=== PATIENT | female | born 1980 | race African-American/Black ===

== ENCOUNTER 2017-08-15 23:40 | Observation (INO) | payer OTHER ==
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
[2017-08-16] MEDS ORDERED: SODIUM CHLORIDE 1,000 ML IV STA ×2 (00:14→00:42)
[2017-08-16] MEDS ORDERED: ONDANSETRON 4 MG/2 ML VIAL IVPUSH ONE (00:14)
[2017-08-16] MEDS ORDERED: FAMOTIDINE IV 20 MG/12 ML VIAL IVPUSH ONE (00:19)
[2017-08-16] MEDS ORDERED: FAMOTIDINE 20 MG/50 ML IVPB 20 MG/50 ML MG IVPB ONE (00:22)
[2017-08-16] MEDS ORDERED: DICYCLOMINE HCL 20 MG/2 ML AMPUL IM ONE (00:42)
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
[2017-08-16 00:55] LABS: BASO % 0.1 % (0-2.0); EOS % 0.1 % (0-4.5); HEMATOCRIT 40.8 % (32.4-45.2); HEMOGLOBIN 13.9 GM/dL (10.7-15.3); LYMPH % 3.7 % (8-40); MCH 29.4 pg (25.7-33.7); MEAN CELL VOLUME 86.5 fl (80-96); MEAN PLT VOLUME 8.5 fl (7.5-11.1); MONO % 4.3 % (3.8-10.2); NEUT % 91.8 % (42.8-82.8); PLATELET COUNT 234 K/MM3 (134-434); RBC 4.72 M/mm3 (3.60-5.2); RDW 13.3 % (11.6-15.6)
[2017-08-16 01:41] LABS: WHITE BLOOD COUNT 15.2 K/mm3 (4.0-10.0)
[2017-08-16 01:59] LABS: ALBUMIN 3.6 g/dl (3.4-5.0); ALK PHOS 52 U/L (45-117); ANION GAP 9 (8-16); BLOOD UREA NITROGEN 13 mg/dL (7-18); CALCIUM 8.2 mg/dL (8.5-10.1); CHLORIDE 113 mmol/L (98-107); CO2 21 mmol/L (21-32); CREATININE 0.6 mg/dL (0.55-1.02); GLUCOSE,RANDOM 107 mg/dL (74-106); LIPASE 40 U/L (73-393); POTASSIUM 3.9 mmol/L (3.5-5.1); SGOT/AST 17 U/L (15-37); SGPT/ALT 14 U/L (12-78); SODIUM 143 mmol/L (136-145); TOT PROT 6.4 g/dl (6.4-8.2)
[2017-08-16] MEDS ORDERED: SODIUM CHLORIDE 1,000 ML IV SCH (03:00)
[2017-08-16] MEDS ORDERED: METOCLOPRAMIDE HCL INJECTION 10 MG/2 ML VIAL IVPUSH ONE (04:06)
[2017-08-16] MEDS ORDERED: METOCLOPRAMIDE HCL INJECTION 10 MG/2 ML VIAL ONE (04:12)
[2017-08-16 04:33] LABS: URINE APPEARANCE SLCLOUDY; URINE BILIRUBIN NEGATIVE (<2.0 mg/dL); URINE BLOOD NEGATIVE (NEGATIVE); URINE COLOR YELLOW; URINE GLUCOSE (UA) NEGATIVE (NEGATIVE); URINE KETONE 2+ (NEGATIVE); URINE LEUK ESTERASE NEGATIVE (NEGATIVE); URINE NITRITE NEGATIVE (NEGATIVE); URINE UROBILINOGEN NEGATIVE mg/dL (0.2-1.0)
[2017-08-16 04:36] LABS: URINE PROTEIN 1+ (NEGATIVE)
[2017-08-16] MEDS ORDERED: MAG HYDROX/AL HYDROX/SIMETH 30 ML UNIT-DOSE CUP PO ONE (04:37)
[2017-08-16] MEDS ORDERED: MAG HYDROX/AL HYDROX/SIMETH 30 ML UNIT-DOSE CUP ONE (04:43)
[2017-08-16 04:44] LABS: EPI CELLS RARE /HPF (FEW); URINE HYALINE CAST 3 /lpf; URINE MUCUS MANY
[2017-08-16] MEDS ORDERED: morphine CARPU-JECT 4 MG/1 ML DISP.SYRIN IVPUSH ONE (05:23)
[2017-08-16] MEDS ORDERED: morphine SULFATE 4 MG/ML VIAL ONE (05:24)
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
[2017-08-16 10:51] VITALS: BMI 18.5
[2017-08-16] MEDS ORDERED: FLU VACCINE QUAD 60 MCG/0.5 ML (MDV 17-18) IM ONE (10:51)
[2017-08-16] MEDS: SODIUM CHLORIDE 1,000 ML IV SCH ×2 (11:22→17:27)
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
--- NOTE | 2017-08-16 16:14 | EKG ---
Test Reason : Blood Pressure : / mmHG Vent. Rate : 061 BPM Atrial Rate : 061 BPM P-R Int : 162 ms QRS Dur : 068 ms QT Int : 434 ms P-R-T Axes : 065 088 086 degrees QTc Int : 436 ms NORMAL SINUS RHYTHM ANTERIOR INFARCT , AGE UNDETERMINED T WAVE ABNORMALITY, CONSIDER LATERAL ISCHEMIA ABNORMAL ECG NO PREVIOUS ECGS AVAILABLE Confirmed by GUILHERME DAS MD ([id number]) on 08/16/2017 4:14:05 PM Referred By: Confirmed By:GUILHERME DAS MD
[2017-08-16] MEDS ORDERED: IBUPROFEN 400 MG TABLET (FP) PO PRN (17:08)
[2017-08-16] MEDS: IBUPROFEN 400 MG TABLET (FP) PO PRN (17:28)
[2017-08-16] MEDS ORDERED: WITCH HAZEL 50% (TUCKS) 40 PAD/JAR PAD TP PRN (18:37)
[2017-08-17] MEDS: SODIUM CHLORIDE 1,000 ML IV SCH ×2 (02:00→07:28)
[2017-08-17] MEDS: IBUPROFEN 400 MG TABLET (FP) PO PRN (05:48)
[2017-08-17 06:07] LABS: HEP.C VIRUS AB <0.1 s/co ratio (0.0-0.9)
[2017-08-17 07:31] LABS: HEMATOCRIT 28.5 % (32.4-45.2); HEMOGLOBIN 9.9 GM/dL (10.7-15.3); MCH 29.7 pg (25.7-33.7); MCHC 34.6 g/dl (32.0-36.0); MEAN CELL VOLUME 85.9 fl (80-96); MEAN PLT VOLUME 8.3 fl (7.5-11.1); PLATELET COUNT 177 K/MM3 (134-434); RBC 3.32 M/mm3 (3.60-5.2); RDW 13.4 % (11.6-15.6); WHITE BLOOD COUNT 5.8 K/mm3 (4.0-10.0)
[2017-08-17] MEDS ORDERED: oxyCODONE HCL 5 MG TABLET PO ONE (08:00)
[2017-08-17 08:08] LABS: ALBUMIN 2.9 g/dl (3.4-5.0); ANION GAP 7 (8-16); BLOOD UREA NITROGEN 6 mg/dL (7-18); CALCIUM 7.3 mg/dL (8.5-10.1); CHLORIDE 116 mmol/L (98-107); CO2 21 mmol/L (21-32); GLUCOSE,RANDOM 79 mg/dL (74-106); POTASSIUM 3.5 mmol/L (3.5-5.1); SODIUM 144 mmol/L (136-145)
[2017-08-17 08:12] LABS: ALK PHOS 43 U/L (45-117); BILIRUBIN,TOTAL 0.4 mg/dL (0.2-1.0); CREATININE 0.6 mg/dL (0.55-1.02); SGOT/AST 31 U/L (15-37); SGPT/ALT 21 U/L (12-78); TOT PROT 5.1 g/dl (6.4-8.2)
[2017-08-17 11:51] LABS: HEMATOCRIT 31.3 % (32.4-45.2); HEMOGLOBIN 10.6 GM/dL (10.7-15.3); MCH 29.3 pg (25.7-33.7); MCHC 33.9 g/dl (32.0-36.0); MEAN CELL VOLUME 86.4 fl (80-96); MEAN PLT VOLUME 7.8 fl (7.5-11.1); PLATELET COUNT 182 K/MM3 (134-434); RBC 3.63 M/mm3 (3.60-5.2); RDW 13.4 % (11.6-15.6); WHITE BLOOD COUNT 5.7 K/mm3 (4.0-10.0)
--- NOTE | 2017-08-17 12:11 | DS ---
Physical Examination Vital Signs: Vital Signs Temperature 98.5 F 08/17/17 10:00 Pulse Rate 60 08/17/17 10:00 Respiratory Rate 20 08/17/17 10:00 Blood Pressure 119/71 08/17/17 10:00 O2 Sat by Pulse Oximetry (%) 99 08/17/17 10:00 Labs: CBC, BMP 08/17/17 11:33 08/17/17 06:00 Discharge Summary Reason For Visit: ABDOMINAL PAIN/NAUSEA VOMITING/GASTROENTERITIS Current Active Problems Abdominal pain (Acute) Nausea and vomiting (Acute) Condition: Improved - Instructions Diet, Activity, Other Instructions: Please return to the ED with new, persistent, or worsening symptoms. Please follow-up with providers as indicated. Referrals: Nicole Garcia MD [Primary Care Provider] - (Please follow-up with your primary care provider within 1 week for further evaluation of your liver findings on your CT scan. Your acute hepatitis panel was negative, however your CT findings showed hepatocellular disease. Your primary care provider should work this up further as an outpatient. ) Disposition: HOME - Home Medications Comprehensive Discharge Medication List: Ambulatory Orders Ibuprofen [Motrin -] 400 mg PO Q6H PRN tablet 08/17/17 Johan Pelaez 50% (Tucks) [Tucks Pads -] 1 pad TP DAILY PRN #30 pad 08/17/17
[2017-08-17 14:24] VITALS: BP 128/75; PULSE 54; TEMP 98.2
== END 2017-08-17 15:59 | disposition home or self-care (01) ==
LOC: JER 23:40 → JERBED 08-16 02:56 → OBSVTOIN 08-16 02:56 → INTOOBSV 08-16 02:56 → JERBED 08-16 03:07 → UNDOADMOB 08-16 03:07 → J7W 08-16 09:41
PROVIDERS: ADMIT Internal Medicine; ATTEND Registered Nurse
PROC: 3E033NZ Introduction of Analgesics, Hypnotics, Sedatives into Peripheral Vein, Percutaneous Approach (ICD-10-PCS; principal; 2017-08-16)
PROC: 3E033GC Introduction of Other Therapeutic Substance into Peripheral Vein, Percutaneous Approach (ICD-10-PCS; 2017-08-16)
PROC: 3E0337Z Introduction of Electrolytic and Water Balance Substance into Peripheral Vein, Percutaneous Approach (ICD-10-PCS; 2017-08-16)
DX: G43.A1 Cyclical vomiting, in migraine, intractable (principal); R10.84 Generalized abdominal pain; F17.210 Nicotine dependence, cigarettes, uncomplicated; K76.9 Liver disease, unspecified; I95.9 Hypotension, unspecified; D72.829 Elevated white blood cell count, unspecified
CPT/HCPCS: 36415; 70450-TC; 74177-TC; 80053; 80074; 81003; 81015; 83690; 84703; 85025; 85027; 90688; 93005; 93010; 96361; 96374; 96375; 99285-25; G0378; J7030

== ENCOUNTER 2018-10-17 18:00 | Emergency (ER) | payer OTHER ==
--- NOTE | 2018-10-17 18:08 | PDOC ---
Rapid Medical Evaluation Chief Complaint: Headache Time Seen by Provider: 10/17/18 18:02 Medical Evaluation: Allergies Allergy/AdvReac Type Severity Reaction Status Date / Time No Known Drug Allergies Allergy Verified 08/16/17 01:01 10/17/18 18:03 I have performed a brief in-person evaluation of this patient. The patient presents with a chief complaint of: BIBA, headache x 4 days, + vomiting, anxiety - worst headache, + photobia denies drugs or etoh, Hx of reswtless leg syndrome, no meds, - reports to EMS was smoking "weed" Pertinent physical exam findings: rocking, appears anxious, talkative , holding head. I have ordered the following: UA, UcG The patient will proceed to the ED for further evaluation. 10/17/18 18:07 10/17/18 18:10 Discharge Disposition - Diagnosis Headache - Referrals - Patient Instructions - Post Discharge Activity
[2018-10-17 18:09] VITALS: BP 100/62; PULSE 73; TEMP 98.3; BMI 19.5
[2018-10-17] MEDS ORDERED: METOCLOPRAMIDE HCL INJECTION 10 MG/2 ML VIAL IVPUSH ONE (19:40)
[2018-10-17] MEDS ORDERED: SODIUM CHLORIDE 1,000 ML IV STA (19:40)
[2018-10-17] MEDS ORDERED: ACETAMINOPHEN 1000 MG/100 ML VIAL (NON FORMULARY) IVPB ONE (19:40)
[2018-10-17] MEDS ORDERED: ACETAMINOPHEN 325 MG TABLET (FP) ONE (19:48)
[2018-10-17] MEDS ORDERED: ACETAMINOPHEN INJECTION 100 ML IVPB ONE (19:55)
[2018-10-17] MEDS ORDERED: METOCLOPRAMIDE HCL INJECTION 10 MG/2 ML VIAL ONE (19:56)
[2018-10-17 20:18] LABS: EPI CELLS 8.3 /HPF (0-5/HPF); HCG,QUALITATIVE URINE Negative; HYALINE CASTS 20 /lpf (0-8); PH,URINE 8.5 (5.0-8.0); URINE APPEARANCE CLEAR; URINE BACTERIA 33.5 /hpf (NEGATIVE); URINE BILIRUBIN NEGATIVE (NEGATIVE); URINE COLOR YELLOW; URINE GLUCOSE (UA) NEGATIVE (NEGATIVE); URINE KETONE TRACE (NEGATIVE); URINE LEUK ESTERASE 1+ (NEGATIVE); URINE NITRITE NEGATIVE (NEGATIVE); URINE PROTEIN NEGATIVE (NEGATIVE); URINE RBC 17 /hpf (0-4); URINE WBC 13 /hpf (0-5)
[2018-10-17] MEDS ORDERED: KETOROLAC TROMETHAMINE 30 MG/1 ML VIAL IVPUSH ONE (20:20)
--- NOTE | 2018-10-17 20:25 | PDOC ---
History of Present Illness - General Chief Complaint: Headache Stated Complaint: HEADACHE Time Seen by Provider: 10/17/18 18:02 History Source: Patient Exam Limitations: No Limitations - History of Present Illness Initial Comments: 10/17/18 20:21 HISTORY OF PRESENT ILLNESS: 38-year-old woman with past medical history of migraines presents emergency department for evaluation of headache with nausea and vomiting starting 4 days ago. Patient reports pain started as a throbbing crushing sensation to her left temporal region radiating to her right temporal then proceeding to the frontal region of her head. She reports this is the usual onset of her migraines for which she usually goes to sleep and apply some cool compresses to her head which helps control her migraines. She reports she was under the care of a neurologist to have her on preventative medication but had to stop when she was . Patient has not restarted medications and has lost contact with the neurologist since that time. Patient reports her pain did not go away and is now progressed to nausea with the occasional nonbilious nonbloody emesis. Patient rates her pain a 15/10 but reports is consistent with her usual migraine pattern. She denies visual disturbances, dizziness, loss of coordination. No recent travel or sick contacts. PAST MEDICAL HISTORY: see HPI SURGICAL HISTORY: Denies ALLERGIES: No known drug allergies REVIEW OF SYSTEMS General/Constitutional: Denies fever or chills. Denies weakness, weight change. HEENT: Denies change in vision. Denies ear pain or discharge. Denies sore throat. Cardiovascular: Denies chest pain or shortness of breath. Respiratory: Denies cough, wheezing, or hemoptysis. Gastrointestinal: Denies nausea, vomiting, diarrhea or constipation. Denies rectal bleeding. Genitourinary: Denies dysuria, frequency, or change in urination. Musculoskeletal: Denies joint or muscle swelling or pain. Denies neck or back pain. Skin and breasts: Denies rash or easy bruising. Neurologic: see HPI Psychiatric: Denies depression or anxiety. Endocrine: Denies increased thirst. Denies abnormal weight change. Hematologic/Lymphatic: Denies anemia, easy bleeding, or history of blood clots. Allergic/Immunologic: Denies hives or skin allergy. Denies latex allergy. PHYSICAL EXAM General Appearance: Well-appearing, appropriately dressed. No apparent distress , no intoxication. HEENT: EOMI, PERRLA, normal ENT inspection, normal voice, TMs normal, pharynx normal. No conjunctival pallor. No photophobia, scleral icterus. Neck: Supple. Trachea midline. No tenderness, rigidity, carotid bruit, stridor , lymphadenopathy, or thyromegaly. Respiratory/Chest: Lungs CTAB. No shortness of breath, chest tenderness, respiratory distress, accessory muscle use. No crackles, rales, rhonchi, stridor , wheezing, dullness Cardiovascular: RRR. S1, S2. No JVD, murmur, bradycardia, tachycardia. Gastrointestinal/Abdominal: Normal bowel sounds. Abdomen soft, non-distended. No tenderness or rebound tenderness. No organomegaly, pulsatile mass, guarding, hernia, hepatomegaly, splenomegaly. Integumentary: Appropriate color, dry, warm. No cyanosis, erythema, jaundice or rash Neurologic: square shear operator II-XII intact. Fully oriented, alert. Appropriate mood/affect. Motor strength 5/5. No appreciable EOM palsy, facial droop or sensory deficit. Gait is steady. Negative Romberg sign. Able to perform rapid alternating movements without difficulty. Past History - Past Medical History Allergies/Adverse Reactions: Allergies Allergy/AdvReac Type Severity Reaction Status Date / Time No Known Drug Allergies Allergy Verified 10/17/18 18:03 Home Medications: Ambulatory Orders Ibuprofen [Motrin -] 400 mg PO Q6H PRN tablet 08/17/17 Witch Latanya 50% (Tucks) [Tucks Pads -] 1 pad TP DAILY PRN #30 pad 08/17/17 Ondansetron [Zofran -] 4 mg PO TID #21 tablet 10/17/18 Anemia: No Asthma: No Cancer: No CVA: No COPD: No CHF: No DVT: No Dementia: No Diabetes: No GI Disorders: No Disorders: No HTN: No Hypercholesterolemia: No Liver Disease: No Seizures: No Thyroid Disease: No - Surgical History Abdominal Surgery: No Appendectomy: No Cardiac Surgery: No Cholecystectomy: No Lung Surgery: No Neurologic Surgery: No Orthopedic Surgery: No - Immunization History Immunization Up to Date: Yes - Suicide/Smoking/Psychosocial Hx Smoking History: Current every day smoker Have you smoked in the past 12 months: Yes Number of Cigarettes Smoked Daily: 10 Information on smoking cessation initiated: Yes 'Breaking Loose' booklet given: 06/06/14 Hx Alcohol Use: No Drug/Substance Use Hx: No Substance Use Type: None Hx Substance Use Treatment: No *Physical Exam - Vital Signs Last Vital Signs Temp Pulse Resp BP Pulse Ox 98.3 F 73 20 100/62 98 10/17/18 18:03 10/17/18 18:03 10/17/18 18:03 10/17/18 18:03 10/17/18 18:03 ED Treatment Course - ADDITIONAL ORDERS Additional order review: Laboratory Results 10/17/18 19:00 Urine Color Yellow Urine Appearance Clear Urine pH 8.5 H D Ur Specific [place] 1.020 Urine Protein Negative Urine Glucose (UA) Negative Urine Ketones Trace H Urine Blood 3+ H Urine Nitrite Negative Urine Bilirubin Negative Urine Urobilinogen 1.0 Ur Leukocyte Esterase 1+ H Urine WBC (Auto) 13 Urine RBC (Auto) 17 Urine Casts (Auto) 20 U Epithel Cells (Auto) 8.3 Urine Bacteria (Auto) 33.5 Urine HCG, Qual Negative Medical Decision Making - Medical Decision Making 10/17/18 20:24 A/P: 38-year-old woman with headache with vomiting for 4 days Pain is consistent with patient's usual migraine pattern. We'll treat patient for migraines using Toradol, Benadryl, Reglan, Tylenol and IV fluids. His symptoms do not improve with medications there is a low threshold for imaging. Reassess 10/17/18 22:37 Patient currently rates her headache 6/10 after receiving her medications. Patient reports her pain is currently tolerable but she does feel little "queasy." I'll give the patient a dose of Zofran prior to discharge and a prescription for Zofran going forward. As patient has not had contact with a neurologist in many years I will give her referral for neurology to follow-up for continued evaluation of her headaches. *DC/Admit/Observation/Transfer Diagnosis at time of Disposition: Migraine Qualifiers: Migraine type: menstrual Status migrainosus presence: with status migrainosus Intractability: not intractable Qualified Code(s): G43.821 - Menstrual migraine , not intractable, with status migrainosus - Discharge Dispostion Disposition: HOME Condition at time of disposition: Stable Decision to Admit order: No - Prescriptions Prescriptions: Ondansetron [Zofran -] 4 mg PO TID #21 tablet - Referrals Referrals: Nicole Garcia MD [Primary Care Provider] - Francisco Philip MD [Staff Physician] - - Patient Instructions Additional Instructions: Take Tylenol or Motrin as needed for headaches. Keep a diary of all food to eat and activities performed prior to headaches starting. Make an appointment with her primary doctor for reevaluation within the next week. Return to emergency department for worsening headache, blurry vision, dizziness , nausea, vomiting or any other concerns. Thank you very much for for choosing us to provide emergent health care needs. - Post Discharge Activity
[2018-10-17 20:34] LABS: COCAINE, UR NEGATIVE ng/ml (CUTOFF=300); METHADONE, UR NEGATIVE ng/ml (CUTOFF=300); OPIATES, URI NEGATIVE ng/ml (CUTOFF=300); PHENCYCLIDINE,URINE NEGATIVE ng/ml (CUTOFF=25); URINE AMPHETAMINES NEGATIVE ng/ml (CUTOFF=500); URINE BARBITURATES NEGATIVE ng/ml (CUTOFF=200); URINE BENZODIAZEPINES NEGATIVE ng/ml (CUTOFF=200)
[2018-10-17] MEDS ORDERED: KETOROLAC TROMETHAMINE 30 MG/1 ML VIAL ONE (21:08)
[2018-10-17] MEDS ORDERED: ONDANSETRON *ODT* 4 MG TABLET SL ONE (22:53)
== END 2018-10-17 22:58 | disposition home or self-care (01) ==
LOC: JER 18:00
PROC: 3E033NZ Introduction of Analgesics, Hypnotics, Sedatives into Peripheral Vein, Percutaneous Approach (ICD-10-PCS; principal; 2018-10-17)
PROC: 3E033GC Introduction of Other Therapeutic Substance into Peripheral Vein, Percutaneous Approach (ICD-10-PCS; 2018-10-17)
PROC: 3E033GC Introduction of Other Therapeutic Substance into Peripheral Vein, Percutaneous Approach (ICD-10-PCS; 2018-10-17)
PROC: 3E0333Z Introduction of Anti-inflammatory into Peripheral Vein, Percutaneous Approach (ICD-10-PCS; 2018-10-17)
DX: G43.821 Menstrual migraine, not intractable, with status migrainosus (principal)
CPT/HCPCS: 80307; 81003; 84703; 99281-25; J0131; J7030

== ENCOUNTER 2019-04-16 21:45 | Emergency (ER) | payer OTHER ==
[2019-04-16 22:20] VITALS: BP 105/62; PULSE 85; TEMP 98.3; BMI 18.6
[2019-04-16] MEDS ORDERED: SODIUM CHLORIDE 1,000 ML IV STA (23:34)
[2019-04-16] MEDS ORDERED: FAMOTIDINE 20 MG/50 ML IVPB 20 MG/50 ML MG IVPB ONE (23:34)
[2019-04-16] MEDS ORDERED: METOCLOPRAMIDE HCL INJECTION 10 MG/2 ML VIAL IVPUSH ONE (23:34)
[2019-04-16] MEDS ORDERED: KETOROLAC TROMETHAMINE 15 MG/ML VIAL IVPUSH ONE (23:34)
--- NOTE | 2019-04-16 23:38 | PDOC ---
History of Present Illness - General Chief Complaint: Migraine Headache Stated Complaint: CHEST PAIN/DIARRHEA Time Seen by Provider: 04/16/19 22:27 - History of Present Illness Initial Comments: 04/17/19 01:37 HPI: 39 y/o F with hx of chronic migraines presenting with chest pain and migraines. Migraines have been present for 4-5 days and presented as her typical migraines with BL frontal and temporal pain with photo/phonophobia. She attempted tylenol and motrin with no relief. Pain is 10/10. She also reports left sided chest painb for 3-4 days that occurred at rest and is sharp. Pain is intermittent and lasts 10-15minutes with radiation to left shoulder blade and with left arm numbness. Her chest pain is improved when she rubs her chest. There was no inciting event and pain is worse with deep inspiration. She also vaguely thinks she may have palpitations and SOB during this time frame but isnt sure. She denies fever, nausea, abnd pain, dysuria, hematuria. She also reports 1 episode of yellowish emesis and loose stools. PMHx: as noted above ROS: as noted SHx: occasional tobacco use; no alcohol use; MJ daily Allergies: NKDA ROS: GENERAL/CONSTITUTIONAL: No fever. No weakness. HEAD, EYES, EARS, NOSE AND THROAT: No change in vision. No ear pain or discharge. No sore throat. CARDIOVASCULAR: +chest pain; no shortness of breath RESPIRATORY: No cough, wheezing, or hemoptysis. GASTROINTESTINAL: +vomiting; no diarrhea or constipation. GENITOURINARY: No dysuria, frequency, or change in urination. MUSCULOSKELETAL: No joint or muscle swelling or pain. No neck or back pain. SKIN: No rash NEUROLOGIC: +headache, vertigo; no loss of consciousness, or change in strength/ sensation. ENDOCRINE: No increased thirst. No abnormal weight change HEMATOLOGIC/LYMPHATIC: No anemia, easy bleeding, or history of blood clots. ALLERGIC/IMMUNOLOGIC: No hives or skin allergy. PE: GENERAL: Awake, alert, and fully oriented, no acute distress HEAD: No signs of trauma, normocephalic, atraumatic EYES: EOMI, sclera anicteric, conjunctiva clear ENT: Auricles normal inspection, hearing grossly normal, nares patent, oropharynx clear without exudates. Moist mucosa NECK: Normal ROM, no lymphadenopathy LUNGS: No increased work of breathing, symmetrical chest rise, clear to auscultation bilaterally, no wheezes, crackles or rhonchi HEART: Regular rate and rhythm, normal S1 and S2, no murmur, peripheral pulses 2 + and equal bilaterally. Left anterior chest wall ttp with reproducible symtpoms ABDOMEN: Soft, nondistended, nontender, normoactive bowel sounds. No guarding, no rebound. No masses. No CVAT MUSCULOSKELETAL: Normal inspection, FROM NEUROLOGICAL: Cranial nerves II through XII grossly intact. Normal speech, normal gait, no focal sensorimotor deficits SKIN: Warm, Dry, normal turgor, no rashes or lesions noted Past History - Past Medical History Allergies/Adverse Reactions: Allergies Allergy/AdvReac Type Severity Reaction Status Date / Time No Known Drug Allergies Allergy Verified 04/16/19 22:20 Home Medications: Ambulatory Orders NK [No Known Home Medication] 04/16/19 Anemia: No Asthma: No Cancer: No CVA: No COPD: No CHF: No DVT: No Dementia: No Diabetes: No GI Disorders: No Disorders: No HTN: No Hypercholesterolemia: No Liver Disease: No Seizures: No Thyroid Disease: No - Surgical History Abdominal Surgery: No Appendectomy: No Cardiac Surgery: No Cholecystectomy: No Lung Surgery: No Neurologic Surgery: No Orthopedic Surgery: No - Immunization History Immunization Up to Date: Yes - Psycho Social/Smoking Cessation Hx Smoking History: Current every day smoker Have you smoked in the past 12 months: Yes Number of Cigarettes Smoked Daily: 12 Information on smoking cessation initiated: No 'Breaking Loose' booklet given: 06/06/14 Hx Alcohol Use: No Drug/Substance Use Hx: No Substance Use Type: None Hx Substance Use Treatment: No *Physical Exam - Vital Signs Last Vital Signs Temp Pulse Resp BP Pulse Ox 98.3 F 85 18 105/62 100 04/16/19 22:00 04/16/19 22:00 04/16/19 22:00 04/16/19 22:00 04/16/19 22:00 ED Treatment Course - LABORATORY CBC & Chemistry Diagram: 04/17/19 00:00 04/17/19 00:00 - RADIOLOGY Radiology Studies Ordered: Category Date Time Status CHEST PA & LAT [RAD] Stat Radiology 04/16/19 23:33 Ordered Medical Decision Making - Medical Decision Making 04/17/19 07:00 39 y/o F with hx of chronic migraines presenting with chest pain and migraines. VSS, AF. PE with reproducible anterior chest wall ttp. DDx includes pna, acs, migraine, costocondritis. PE unlikely due to PERC out. -ekg, cxr to reulout cardiac/pna; cbc, cmp -ivf, reglan, benadryl, toradol 04/17/19 07:15 cxr with no acute pathology ekg with nsr, nl intervals, q waves in v1-v3 patient pain improved and would like to home discussed results and return pcxnsl all questions asnwered Discharge - Discharge Information Problems reviewed: Yes Clinical Impression/Diagnosis: Diarrhea Chest pain Qualifiers: Chest pain type: unspecified Qualified Code(s): R07.9 - Chest pain, unspecified Migraine Qualifiers: Migraine type: unspecified Condition: Improved Disposition: HOME - Follow up/Referral Referrals: Carolina Newsome MD [Staff Physician] - - Patient Discharge Instructions Patient Printed Discharge Instructions: Migraine -- Adult Additional Instructions: Additional Instructions: Please return to the emergency department with any new or worsening symptoms or concerns. Please follow up with your primary care physician and neurologist Please take tylenol 650mg every 6hrs and motrin 600mg every 6 hrs for pain control - Post Discharge Activity
[2019-04-17] MEDS ORDERED: METOCLOPRAMIDE HCL INJECTION 10 MG/2 ML VIAL ONE (00:28)
[2019-04-17] MEDS ORDERED: FAMOTIDINE 20 MG/50 ML IVPB 20 MG/50 ML MG IVPB ONE (00:28)
[2019-04-17] MEDS ORDERED: KETOROLAC TROMETHAMINE 15 MG/ML VIAL ONE (00:28)
[2019-04-17 00:29] LABS: BASO % 0.4 % (0-2.0); EOS % 0.2 % (0-4.5); HEMATOCRIT 33.9 % (32.4-45.2); HEMOGLOBIN 11.2 GM/dL (10.7-15.3); MCH 28.4 pg (25.7-33.7); MCHC 33.1 g/dl (32.0-36.0); MEAN CELL VOLUME 85.7 fl (80-96); MEAN PLT VOLUME 7.9 fl (7.5-11.1); MONO % 5.5 % (3.8-10.2); NEUT % 82.9 % (42.8-82.8); PLATELET COUNT 281 K/MM3 (134-434); RBC 3.96 M/mm3 (3.60-5.2); RDW 13.9 % (11.6-15.6); WHITE BLOOD COUNT 12.3 K/mm3 (4.0-10.0)
--- NOTE | 2019-04-17 00:57 | PDOC ---
Documentation entered by Chely Curry SCRIBE, acting as scribe for Antonio Lobo MD. Antonio Lobo MD: This documentation has been prepared by the Antoinette dupree Adrianna, SCRIBE, under my direction and personally reviewed by me in its entirety. I confirm that the documentation accurately reflects all work, treatment, procedures, and medical decision making performed by me. Attending Attestation - Resident Resident Name: Bethel,Tavonsyeda - ED Attending Attestation I have performed the following: I have examined & evaluated the patient, The case was reviewed & discussed with the resident, I agree w/resident's findings & plan, Exceptions are as noted - HPI HPI: 38 year old female, with a significant PMH of chronic migraines, presents with migraines and chest pain for 5-6 days. Patient complains of bilateral frontal and temporal migraine, that is a 10/10 with associated photophobia (similar to typical migraines in the past). Denies lightheadedness, syncope, or neck stiffness. She reports one episode of nausea and vomit with yellow sputum. Patient additionally complains of left-sided chest pain, that is pleuritic in nature and radiates to her left shoulder and LUE. Pain is exacerbated with deep inspiration, and alleviated with massaging the area. Allergies: NKA, NKDA Surgical History: None reported Social History: Current every smoker and marijuana user. - Physicial Exam PE: 04/17/19 00:54 Patient is awake and alert, well-nourished, in no significant distress Normocephalic and atraumatic PERRLA, EOMI, positive photophobia Neck is supple, no meningismus CTA, left anterior chest wall tenderness to palpation reproducing patient's symptoms RRR Abdomen soft nontender, nondistended No extremity edema/deformity No petechial rash No focal neurological deficits - Medical Decision Making 04/17/19 00:55 Patient is a 39-year-old female who presents with multiple complaints including headache consistent with her previous migraines which will be treated with Reglan and Benadryl; pleuritic left-sided chest wall pain which will be treated with Toradol and IV fluids. Diarrhea on one occasion which will be treated with IV fluids as well. Will obtain CBC/CMP to evaluate for leukocytosis and significant electrolyte abnormalities. Will reassess. Likely discharge. 12/26/19 01:39 PE is unlikely given patient is PERC rule negative. Chest x-ray reveals no evidence of infiltrate or effusion. EKG is not consistent with acute ischemia or dysrhythmia, Q waves are noted the 1 through V3 which appear old.
[2019-04-17 01:08] LABS: BILIRUBIN,TOTAL 0.8 mg/dL (0.2-1); BLOOD UREA NITROGEN 11.4 mg/dL (7-18); CALCIUM 9.6 mg/dL (8.5-10.1); CREATININE 0.6 mg/dL (0.55-1.3); TOT PROT 7.3 g/dl (6.4-8.2)
--- NOTE | 2019-04-17 10:29 | EKG ---
Test Reason : Blood Pressure : / mmHG Vent. Rate : 062 BPM Atrial Rate : 062 BPM P-R Int : 156 ms QRS Dur : 070 ms QT Int : 422 ms P-R-T Axes : 077 085 090 degrees QTc Int : 428 ms NORMAL SINUS RHYTHM POSSIBLE LEFT ATRIAL ENLARGEMENT POSSIBLE ANTERIOR INFARCT (CITED ON OR BEFORE 16-AUG-2017) ABNORMAL ECG WHEN COMPARED WITH ECG OF 17-APR-2019 01:32, NO SIGNIFICANT CHANGE WAS FOUND Confirmed by GUILHERME DAS MD ([id number]) on 04/17/2019 10:29:03 AM Referred By: Confirmed By:GUILHERME DAS MD
== END 2019-04-17 03:50 | disposition home or self-care (01) ==
LOC: JER 21:45
PROC: 3E033GC Introduction of Other Therapeutic Substance into Peripheral Vein, Percutaneous Approach (ICD-10-PCS; principal; 2019-04-16)
PROC: 3E033GC Introduction of Other Therapeutic Substance into Peripheral Vein, Percutaneous Approach (ICD-10-PCS; 2019-04-16)
PROC: 3E033GC Introduction of Other Therapeutic Substance into Peripheral Vein, Percutaneous Approach (ICD-10-PCS; 2019-04-16)
PROC: 3E0333Z Introduction of Anti-inflammatory into Peripheral Vein, Percutaneous Approach (ICD-10-PCS; 2019-04-16)
DX: G43.909 Migraine, unspecified, not intractable, without status migrainosus (principal); R07.9 Chest pain, unspecified; F17.210 Nicotine dependence, cigarettes, uncomplicated
CPT/HCPCS: 36415; 71046-TC-FY; 80053; 84703; 85025; 93005; 93010; 99283-25; J7030

== ENCOUNTER 2019-06-13 16:14 | Emergency (ER) | payer OTHER ==
--- NOTE | 2019-06-13 16:23 | PDOC ---
Rapid Medical Evaluation Time Seen by Provider: 06/13/19 16:18 Medical Evaluation: Allergies Allergy/AdvReac Type Severity Reaction Status Date / Time No Known Drug Allergies Allergy Verified 04/16/19 22:20 06/13/19 16:19 CC: B/L thigh pain- "like stabbing an ice pick into my legs." Also with vaginal bleeding with left pelvic pain. 2nd period since 05/24. PE: No focal findings. RETAIL SALES ASSOCIATE deferred. Orders: labs, urine Patient will proceed to ED for evaluation. 06/13/19 16:22 Discharge Disposition - Diagnosis Leg pain, bilateral, Vaginal bleeding - Referrals - Patient Instructions - Post Discharge Activity
[2019-06-13 16:24] VITALS: BP 117/67; PULSE 84; TEMP 97.6; BMI 17.6
[2019-06-13 17:10] LABS: BASO % 0.6 % (0-2.0); EOS % 0.7 % (0-4.5); HEMATOCRIT 33.2 % (32.4-45.2); HEMOGLOBIN 11.3 GM/dL (10.7-15.3); LYMPH % 31.5 % (8-40); MCH 29.1 pg (25.7-33.7); MCHC 34.1 g/dl (32.0-36.0); MEAN CELL VOLUME 85.2 fl (80-96); MEAN PLT VOLUME 7.8 fl (7.5-11.1); MONO % 11.3 % (3.8-10.2); NEUT % 55.9 % (42.8-82.8); PLATELET COUNT 278 K/MM3 (134-434); RDW 13.2 % (11.6-15.6); WHITE BLOOD COUNT 6.8 K/mm3 (4.0-10.0)
[2019-06-13 17:31] LABS: ALBUMIN 4.2 g/dl (3.4-5.0); BILIRUBIN,TOTAL 0.5 mg/dL (0.2-1); BLOOD UREA NITROGEN 10.6 mg/dL (7-18); CALCIUM 9.4 mg/dL (8.5-10.1); CREATININE 0.8 mg/dL (0.55-1.3); POTASSIUM 4.5 mmol/L (3.5-5.1); TOT PROT 7.3 g/dl (6.4-8.2)
[2019-06-13 18:22] LABS: EPI CELLS 3.8 /HPF (0-5/HPF); HYALINE CASTS 3 /lpf (0-8); PH,URINE 7.5 (5.0-8.0); URINE APPEARANCE CLEAR; URINE BACTERIA 10.1 /hpf (NEGATIVE); URINE BILIRUBIN NEGATIVE (NEGATIVE); URINE COLOR YELLOW; URINE GLUCOSE (UA) NEGATIVE (NEGATIVE); URINE KETONE NEGATIVE (NEGATIVE); URINE LEUK ESTERASE TRACE (NEGATIVE); URINE NITRITE NEGATIVE (NEGATIVE); URINE PROTEIN NEGATIVE (NEGATIVE); URINE RBC 2 /hpf (0-4); URINE UROBILINOGEN 0.2 mg/dL (0.2-1.0); URINE WBC 4 /hpf (0-5)
--- NOTE | 2019-06-13 19:06 | PDOC ---
History of Present Illness - General Chief Complaint: Pain Stated Complaint: Pain Time Seen by Provider: 06/13/19 16:18 History Source: Patient Exam Limitations: No Limitations Past History - Past Medical History Allergies/Adverse Reactions: Allergies Allergy/AdvReac Type Severity Reaction Status Date / Time No Known Drug Allergies Allergy Verified 06/13/19 16:24 Home Medications: Ambulatory Orders NK [No Known Home Medication] 04/16/19 Anemia: No Asthma: No Cancer: No CVA: No COPD: No CHF: No DVT: No Dementia: No Diabetes: No GI Disorders: No Disorders: No HTN: No Hypercholesterolemia: No Liver Disease: No Seizures: No Thyroid Disease: No - Surgical History Abdominal Surgery: No Appendectomy: No Cardiac Surgery: No Cholecystectomy: No Lung Surgery: No Neurologic Surgery: No Orthopedic Surgery: No - Immunization History Immunization Up to Date: Yes - Psycho Social/Smoking Cessation Hx Smoking History: Never smoked Have you smoked in the past 12 months: No Number of Cigarettes Smoked Daily: 12 Information on smoking cessation initiated: No 'Breaking Loose' booklet given: 06/06/14 Hx Alcohol Use: No Drug/Substance Use Hx: No Substance Use Type: None Hx Substance Use Treatment: No *Physical Exam - Vital Signs Last Vital Signs Temp Pulse Resp BP Pulse Ox 97.6 F 84 18 117/67 100 06/13/19 16:20 06/13/19 16:20 06/13/19 16:20 06/13/19 16:20 06/13/19 16:20 - Physical Exam General Appearance: No: Apparent Distress Respiratory/Chest: positive: Lungs Clear, Normal Breath Sounds. negative: Respiratory Distress Cardiovascular: positive: Regular Rhythm, Regular Rate, S1, S2. negative: Murmur Female Pelvic Exam: positive: adnexal tenderness (mild L adnexal tenderness) Gastrointestinal/Abdominal: positive: Normal Bowel Sounds, Soft. negative: Tender, Distended, Guarding, Rebound Neurologic: positive: back order clerk II-XII NML intact, Alert, Normal Mood/Affect, Motor Strength 5/5 ED Treatment Course - LABORATORY CBC & Chemistry Diagram: 06/13/19 16:40 06/13/19 16:40 - ADDITIONAL ORDERS Additional order review: Laboratory Results 06/13/19 06/13/19 06/13/19 Unknown Unknown 16:40 Sodium 140 Potassium 4.5 Chloride 110 H Carbon Dioxide 26 Anion Gap 4 L BUN 10.6 Creatinine 0.8 Est GFR (CKD-EPI)AfAm 109.16 Est GFR (CKD-EPI)NonAf 94.18 Random Glucose 86 Calcium 9.4 Total Bilirubin 0.5 AST 11 L ALT 15 Alkaline Phosphatase 61 Total Protein 7.3 Albumin 4.2 Urine Color Yellow Urine Appearance Clear Urine pH 7.5 Ur Specific [place] 1.009 L Urine Protein Negative Urine Glucose (UA) Negative Urine Ketones Negative Urine Blood Negative Urine Nitrite Negative Urine Bilirubin Negative Urine Urobilinogen 0.2 Ur Leukocyte Esterase Trace Urine WBC (Auto) 4 Urine RBC (Auto) 2 Urine Casts (Auto) 3 U Epithel Cells (Auto) 3.8 Urine Bacteria (Auto) 10.1 Urine HCG, Qual Negative 06/13/19 16:40 RBC 3.90 MCV 85.2 MCHC 34.1 RDW 13.2 MPV 7.8 Neutrophils % 55.9 D Lymphocytes % 31.5 D Monocytes % 11.3 H D Eosinophils % 0.7 D Basophils % 0.6 - RADIOLOGY Radiology Studies Ordered: Category Date Time Status TRANSVAGINAL ULTRASOUND US [US] Stat Ultrasound 06/13/19 17:31 Taken Medical Decision Making - Medical Decision Making 39-year-old female history of herniated disc, migraines presents with left- sided pelvic pain for 1.5 weeks. Also endorses that she had a menstrual cycle twice this month. Her first cycle was May 24 which lasted for 3 days ( normal for patient) and a second cycle started on June 09. Patient is currently not menstruating. States her cycles are usually once a month. Patient states she decided to come to the ED instead of going to [facility] for evaluation. Also mentions she has been having sharp right leg pain off and on since 2011. Mentions she has been seeing a neurologist who told her she may possibly have restless leg syndrome but needs further testing done. Due to other issues patient was not able to see a neurologist for around a year but just scheduled an appointment for June 30. Denies fever, shortness of breath, chest pain, nausea, vomiting, diarrhea, urinary symptoms, numbness/tingling/ weakness of extremities. UCG negative Rest of labs unremarkable Pending results of pelvic ultrasound Regarding chronic right leg pain, advised to follow-up with a neurologist for further evaluation No current evidence of focal weakness on exam 02/21/20 19:01 TVUS shows possible uterine fibroid; given copy of results Stable for dc 06/13/19 19:48 Discharge - Discharge Information Problems reviewed: Yes Clinical Impression/Diagnosis: Vaginal bleeding, Leg pain, right Condition: Stable Disposition: HOME - Admission No - Additional Discharge Information Prescription Drug Monitoring Program (I-STOP) results: I-STOP not reviewed - Follow up/Referral Referrals: Nicole Garcia MD [Primary Care Provider] - - Patient Discharge Instructions Patient Printed Discharge Instructions: DI for Vaginal Bleeding Additional Instructions: Thank you for choosing [facility]. It was a pleasure taking care of you. Please follow-up with your scrum product owner regarding your menstrual cycle Continue follow-up with your neurologist as well Return to the Emergency Department if your symptoms worsen or persist or have other concerning symptoms. - Post Discharge Activity
[2019-06-13] MEDS ORDERED: KETOROLAC TROMETHAMINE 30 MG/1 ML VIAL IM ONE (19:47)
[2019-06-13] MEDS ORDERED: KETOROLAC TROMETHAMINE 30 MG/1 ML VIAL ONE (20:16)
== END 2019-06-13 20:49 | disposition home or self-care (01) ==
LOC: JER 16:14
PROC: 3E0233Z Introduction of Anti-inflammatory into Muscle, Percutaneous Approach (ICD-10-PCS; principal; 2019-06-13)
DX: N93.8 Other specified abnormal uterine and vaginal bleeding (principal); M79.604 Pain in right leg
CPT/HCPCS: 36415; 76830-TC; 80053; 81003; 84703; 85025; 99285-25